=== PATIENT | female | born 1930 | race American Indian/Alaskan Native ===

== ENCOUNTER 2017-01-24 13:55 | Emergency (ER) | payer MEDICARE, BC ==
[2017-01-24 13:59] VITALS: BMI 29.2
[2017-01-24 14:01] VITALS: RESP 18; O2SAT 100
[2017-01-24] MEDS ORDERED: Morphine 4 mg/ml ISec IVP STA (14:51)
--- NOTE | 2017-01-24 14:51 | ED PDOC ---
Arrival/HPI - General Chief Complaint: Trauma Time Seen by Provider: 01/24/17 14:51 Historian: Patient, Family - History of Present Illness Narrative History of Present Illness (Text): 01/24/17 14:51 A 86 year old female was brought into the emergency department by family complaining of left hip pain after fall prior to arrival. Patient reports she felt off balance causing her to fall and land on her left hip. Patient states the pain is worse with movement. Family reports patient frequently loses her balance. Patient denies any loss of consciousness, head trauma, headache, dizziness, neck pain, back pain, nausea, vomiting, abdominal pain, chest pain, shortness of breath or any other complaints. PMD: Dr. Barros Time/Duration: Prior to Arrival Symptom Course: Unchanged Quality: Other Context: Home Past Medical History - Provider Review Nursing Documentation Reviewed: Yes - Infectious Disease Hx of Infectious Diseases: None - Tetanus Immunization Tetanus Immunization: Unknown - Cardiac Hx Cardiac Disorders: Yes Hx Hypertension: Yes Hx Pacemaker: No Other/Comment: Open heart surgery, tripple bypass with stent placement. Cardiac cath - Pulmonary Hx Respiratory Disorders: No - Neurological Hx Neurological Disorder: Yes HX Cerebrovascular Accident: Yes (no deficits) - HEENT Hx Cataracts: Yes Hx Glaucoma: Yes Hx Macular Degeneration: Yes - Renal Hx Renal Disorder: No - Endocrine/Metabolic Hx Endocrine Disorders: No - Hematological/Oncological Hx Blood Disorders: No - Integumentary Hx Dermatological Disorder: No - Musculoskeletal/Rheumatological Hx Musculoskeletal Disorders: Yes Hx Falls: Yes (today) - Gastrointestinal Hx Gastrointestinal Disorders: Yes (reflux) Hx Gastroesophageal Reflux: Yes - Genitourinary/Gynecological Hx Genitourinary Disorders: Yes Other/Comment: Hysterectomy - Psychiatric Hx Psychophysiologic Disorder: No Hx Emotional Abuse: No Hx Physical Abuse: No Hx Substance Use: No - Surgical History Hx Abdominal Aortic Aneurysm Repair: Yes (with stent) Hx Hysterectomy: Yes Other/Comment: tripple bypass with stent placement, cardiac cath. - Anesthesia Hx Anesthesia: Yes Hx Anesthesia Reactions: No Hx Malignant Hyperthermia: No - Suicidal Assessment Feels Threatened In Home Enviroment: No Family/Social History - Physician Review Nursing Documentation Reviewed: Yes Family/Social History: No Known Family HX Smoking Status: Former Smoker Hx Alcohol Use: No Hx Substance Use: No Hx Substance Use Treatment: No Allergies/Home Meds Allergies/Adverse Reactions: Allergies Penicillins Allergy (Verified 12/14/16 14:26) SWELLING pt states family hx of allergy swelling. Does not recall of ever receiving pcn. tetanus and diphtheria toxoids [tetanus & diphtheria toxoids] Allergy (Verified 12/14/16 14:26) SWELLING Home Medications: Home Meds Medication Instructions Recorded Confirmed Aspirin [Aspir 81] 81 mg PO DAILY 03/16/13 12/14/16 Atorvastatin Calcium [Lipitor] 10 mg PO DAILY 03/16/13 12/14/16 Metoprolol Succinate [Toprol XL] 50 mg PO DAILY 03/16/13 12/14/16 Enalapril Maleate 20 mg PO DAILY 10/30/14 12/14/16 Isosorbide Mononitrate [Isosorbide 30 mg PO DAILY 06/01/16 12/14/16 Mononitrate ER] Potassium Chloride [Klor-Con 10] 10 meq PO QOTHERDAY 06/01/16 12/14/16 Allopurinol [Zyloprim] 100 mg PO DAILY 06/08/16 12/14/16 Colchicine 0.6 mg PO DAILY PRN 06/08/16 12/14/16 Propylene Glycol/Peg 400/Pf 1 drop OU BID 06/08/16 12/14/16 [Systane 0.3-0.4% Eye Drops] Spironolactone 25 mg PO DAILY 06/08/16 12/14/16 Vit A/Vit C/Vit E/Zinc/Copper 1 tab PO BID 06/08/16 12/14/16 [Preservision Areds Tablet] Omeprazole 20 mg PO DAILY 12/12/16 12/14/16 Physical Exam - Physical Exam Narrative Physical Exam (Text): - Review of Systems Constitutional: Normal. absent: Fatigue, Weight Change, Fevers Eyes: Normal ENT: Normal Respiratory: Normal absent: SOB, Cough, Sputum Cardiovascular: Normal absent: Chest pain, Palpitations, Syncope Gastrointestinal: Normal absent: Abdominal pain, Diarrhea, Nausea, Vomiting Genitourinary: Normal. absent: Dysuria, Frequency, Hematuria Musculoskeletal: (+) Left hip pain absent: Arthralgias, Back Pain, Neck Pain Skin: Normal Neurological: Normal absent: Focal Weakness Endocrine: Normal Hemo/Lymphatic: Normal Psychiatric: Normal - Physical exam Patient appears age appropriate, speaking full sentences without difficulty Head atraumatic. No nasal bone deformity or tenderness, no facial or jaw pain/ swelling. No neck midline tenderness, thoracic and lumbar spine with no midline tenderness. Pt moving b/l upper and lower extremities without difficulty, 5/5 strength, with full active and passive ROM. L. hip with a large overlying hematoma. No decrease in ROM. Distal neurovasc fully intact. Abd soft/nt/ng, no hematomas, no peritoneal signs. Neg. pelvic rock. - Systems Exam Head: Present: Atraumatic, Normocephalic Pupils: Present: PERRL Extraocular Muscles: Present: EOMI Conjunctiva: Present: Normal Mouth: Present: Moist Mucous Membranes Neck: Present: Normal Range of Motion. No: MIDLINE TENDERNESS, Paraspinal Tenderness Respiratory/Chest: Present: Clear to Auscultation, Good Air Exchange. No: Respiratory Distress, Accessory Muscle Use, Tachypneic Cardiovascular: Present: Regular Rate and Rhythm, Normal S1, S2, Peripheral Pulses Present. No: Murmurs Abdomen: Present: Normal Bowel Sounds, No: Tenderness, Peritoneal Signs, Rebound, Guarding, Distention Back: Present: Normal Inspection. No: Midline Tenderness, Paraspinal Tenderness Upper Extremity: Present: Normal Inspection. No: Cyanosis, Edema Lower Extremity: Present: Large hematoma in left hip No: Edema Neurological: Present: GCS=15, Speech Normal, cranial nerves II through XII fully intact with no cerebellar abnormality, neuro-sensory fully intact. No focal neurological deficits. Skin: Present: Warm, Dry, Normal Color. No: Rashes Lymphatic: Present: OX3, NI, NC Psychiatric: Present: Alert, Oriented x 3, Normal Insight, Normal Concentration Vital Signs Reviewed: Yes Vital Signs Temp Pulse Resp BP Pulse Ox 01/24/17 17:25 69 18 112/67 100 01/24/17 15:38 75 18 114/65 100 01/24/17 14:01 98.0 F 79 18 116/61 100 Temperature: Afebrile Blood Pressure: Normal Pulse: Regular Respiratory Rate: Normal Appearance: Positive for: Well-Appearing, Non-Toxic, Comfortable Pain Distress: None Mental Status: Positive for: Alert and Oriented X 3 Medical Decision Making ED Course and Treatment: 01/24/17 14:51 Impression: A 86 year old female with left hip pain. Patient reports she loss her balance causing her to fall. On exam, large hematoma over the left hip. Plan: -- Head CT -- Left hip xray -- Labs -- Morphine -- Reassess and disposition Progress Notes: PROCEDURE: CT of the Head Library Consultant : Saman Clemons MD IMPRESSION: Chronic microvascular changes. No acute findings. PROCEDURE: CT of the Left Hip. Library Consultant : Den Hansen MD IMPRESSION: No fracture. PROCEDURE: CT of the Pelvis Library Consultant : Den Hansen MD IMPRESSION: No acute fracture 01/24/17 18:42 on reeval, pt states she feels much better ambulates and bears weight with assistance in the ED pt's daughter states she ambulates with a walker at home states she feels comfortable taking mother home and that her brother stays with mom daughter states she can arrange f/u with Dr Barros and ortho specialist Pt states she understands to return to the ER right away for new or worsening symptoms or for inability to f/u with PMD or specialist as instructed. Patient states that she fully agrees with and understands discharge instructions. States that she agrees with the plan and disposition. Verbalized and repeated discharge instructions and plan. I have given the patient opportunity to ask any additional questions. - Lab Interpretations Lab Results: 01/24/17 15:40 01/24/17 15:40 Lab Results 01/24/17 15:50: Blood Type O POSITIVE, Antibody Screen Negative, BBK History Checked No verified bt 01/24/17 15:40: WBC 5.4 D, RBC 3.77, Hgb 11.8 L, Hct 35.6 L, MCV 94.4, MCH 31.3 , MCHC 33.1, RDW 13.5, Plt Count 224, MPV 10.1, Gran % 64.1, Lymph % (Auto) 27.4 , Crowley % (Auto) 5.9, Eos % (Auto) 2.4, Baso % (Auto) 0.2, Gran # 3.49, Lymph # 1.5, Crowley # 0.3, Eos # 0.1, Baso # 0.01, PT 11.2, INR 1.04, APTT 22.6 L, Sodium 139, Potassium 4.2, Chloride 102, Carbon Dioxide 30, Anion Gap 11, BUN 39 H, Creatinine 1.3, Est GFR ( Amer) 47, Est GFR (Non-Af Amer) 39, Random Glucose 94, Calcium 10.4, Total Bilirubin 0.6, AST 21, ALT 24, Alkaline Phosphatase 76, Total Protein 6.9, Albumin 3.7, Globulin 3.3, Albumin/Globulin Ratio 1.1 I have reviewed the lab results: Yes - RAD Interpretation Radiology Orders: 01/24/17 14:51 HEAD W/O CONTRAST [CT] Stat HIP MIN 2V W/ PELVIS LT [RAD] Stat 01/24/17 17:36 PELVIS W/O PO OR IV CONTRAST [CT] Stat 01/24/17 17:38 HIP WITHOUT CONTRAST LEFT [CT] Stat [employer] Cook: Radiologist - Medication Orders Current Medication Orders: Discontinued Medications Morphine Sulfate (Morphine) 4 mg IVP STAT STA Stop: 01/24/17 14:52 Last Admin: 01/24/17 15:30 Dose: 4 MG MAR Pain Assessment Document 01/24/17 15:30 EQ (Rec: 01/24/17 16:48 EQ [id number]) Pain Reassessment Is this a pain reassessment? Yes Sleep Is patient sleeping during reassessment? No Presence of Pain Presence of Pain No Pain Scale Used Pain Scale Used Numeric Location Left, Right or Bilateral Left Pain Location Body Site Hip Description Description Constant Intensity of Pain at present 4 IVP Administration Document 01/24/17 15:30 EQ (Rec: 01/24/17 16:48 EQ [id number]) Charges for Administration # of IVP Administrations 1 - Scribe Statement The provider has reviewed the documentation as recorded by the Darrell Solis Provider Scribe Attestation: All medical record entries made by the Scribe were at my direction and personally dictated by me. I have reviewed the chart and agree that the record accurately reflects my personal performance of the history, physical exam, medical decision making, and the department course for this patient. I have also personally directed, reviewed, and agree with the discharge instructions and disposition. Disposition/Present on Arrival - Present on Arrival Any Indicators Present on Arrival: No History of DVT/PE: No History of Uncontrolled Diabetes: No Urinary Catheter: No History of Decub. Ulcer: No History Surgical Site Infection Following: None - Disposition Have Diagnosis and Disposition been Completed?: Yes Diagnosis: Fall at home Disposition: HOME/ ROUTINE Disposition Time: 18:45 Patient Plan: Discharge Patient Problems: Current Active Problems Problem Status Diagnosed Flank pain Acute Groin pain Acute Hematuria Acute UTI (urinary tract infection) Acute Condition: GOOD Discharge Instructions (ExitCare): Fall Prevention for Older Adults (ED), Contusion in Adults (ED), Hematoma (ED) Additional Instructions: PLEASE RETURN TO THE EMERGENCY DEPARTMENT FOR NEW OR WORSENING SYMPTOMS. RETURN RIGHT AWAY IF YOU CANNOT FOLLOW UP WITH YOUR PRIMARY CARE DOCTOR, CLINIC, OR SPECIALIST IN 1-2 DAYS. Prescriptions: Acetaminophen with Codeine [Tylenol with Codeine #3 Tablet] 1 each PO Q6 PRN # 12 tablet PRN Reason: Pain, Moderate (4-7) Referrals: Chantale Barros MD [Primary Care Provider] - Follow up with primary Isauro Kim III, MD [Medical Doctor] - Follow up with primary Saman Johnson DO [Staff Provider] - Follow up with primary Trinidad Richard MD [Staff Provider] - Follow up with primary
[2017-01-24 15:42] LABS: ADD MANUAL DIFF? NO
[2017-01-24 15:50] LABS: BASO # 0.01 K/mm3 (0.0-2.0); BASO % 0.2 % (0.0-3.0); EOS # 0.1 (0.0-0.7); EOS % 2.4 % (1.5-5.0); GRAN # 3.49 (1.4-6.5); GRAN % 64.1 % (50.0-68.0); HEMATOCRIT 35.6 % (36.0-48.0); LYMPH # 1.5 (1.2-3.4); LYMPH % 27.4 % (22.0-35.0); MEAN CELL VOLUME 94.4 fL (80.0-105.0); MEAN CORPUSCULAR HEMOGLOBIN 31.3 pg (25.0-35.0); MEAN CORPUSCULAR HGB CONC 33.1 g/dl (31.0-37.0); MEAN PLATELET VOLUME 10.1 fl (7.0-11.0); MONO # 0.3 (0.1-0.6); MONO % 5.9 % (1.0-6.0); PLATELET COUNT 224 10^3/uL (120.0-450.0); RED CELL DISTRIBUTION WIDTH 13.5 % (11.5-14.5); WHITE BLOOD COUNT 5.4 10^3/ul (4.5-11.0)
[2017-01-24 15:59] LABS: ALB/GLOB RATIO 1.1 (1.1-1.8); BILIRUBIN,TOTAL 0.6 mg/dL (0.2-1.3); CALCIUM 10.4 mg/dL (8.4-10.5); POTASSIUM 4.2 mmol/L (3.6-5.0); TOTAL PROTEIN 6.9 g/dL (5.8-8.3)
[2017-01-24 16:06] LABS: INR 1.04 (0.93-1.08); PARTIAL THROMBOPLASTIN TIME 22.6 Seconds (23.7-30.8)
--- NOTE | 2017-01-24 16:09 | CT ---
PROCEDURE: CT HEAD WITHOUT CONTRAST. HISTORY: fall COMPARISON: 10/30/2014 TECHNIQUE: Axial computed tomography images were obtained through the head/brain without intravenous contrast. Radiation dose: Total exam DLP = 712 mGy-cm. This CT exam was performed using one or more of the following dose reduction techniques: Automated exposure control, adjustment of the mA and/or kV according to patient size, and/or use of iterative reconstruction technique. FINDINGS: HEMORRHAGE: No intracranial hemorrhage. BRAIN: No mass effect or edema. Chronic microvascular changes are seen in the periventricular white matter. VENTRICLES: Unremarkable. No hydrocephalus. CALVARIUM: Unremarkable. PARANASAL SINUSES: Unremarkable as visualized. No significant inflammatory changes. MASTOID AIR CELLS: Unremarkable as visualized. No inflammatory changes. OTHER FINDINGS: The basilar artery is severely tortuous and calcified IMPRESSION: Chronic microvascular changes. No acute findings
--- NOTE | 2017-01-24 18:15 | CT ---
PROCEDURE: CT of the Left Hip. HISTORY: fall COMPARISON: None available. TECHNIQUE: Contiguous axial images of the left hip were obtained. Coronal and sagittal reformats were generated. Four hundred seventy-[address] MAS radiation dose This CT exam was performed using one or more of the following dose reduction techniques: Automated exposure control, adjustment of the mA and/or kV according to patient size, and/or use of iterative reconstruction technique. FINDINGS: BONES: Unremarkable. No fracture or focal lesion. Femoral head maintains normal contour. LEFT HIP JOINT: Unremarkable. No dislocation. No degenerative changes. SOFT TISSUES: Left lateral upper thigh hematoma.. IMPRESSION: No fracture.
--- NOTE | 2017-01-24 18:26 | CT ---
PROCEDURE: CT Pelvis without contrast HISTORY: fall COMPARISON: None. TECHNIQUE: Contiguous axial images of the pelvis . No intravenous or oral contrast given. Coronal and sagittal reformats generated. Radiation dose: Total exam DLP = mGy-cm. This CT exam was performed using one or more of the following dose reduction techniques: Automated exposure control, adjustment of the mA and/or kV according to patient size, and/or use of iterative reconstruction technique. FINDINGS: BLADDER: Unremarkable. No mass. REPRODUCTIVE ORGANS: Unremarkable. VISUALIZED BOWEL: Unremarkable. PERITONEUM: Unremarkable, as visualized. No free fluid. No free air. LYMPH NODES: Unremarkable. No enlarged lymph nodes. BONES: No fracture or focal lesion. VASCULATURE: Unremarkable. 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 Left lateral upper thigh soft tissue hematoma.. IMPRESSION: No acute fracture.
[2017-01-24 18:52] VITALS: BP 116/69; PULSE 67
[2017-01-24 19:00] VITALS: TEMP 98
--- NOTE | 2017-01-25 09:43 | RAD ---
PROCEDURE: Pelvis left hip HISTORY: fall, L hip pain COMPARISON: CT left hip Summary of findings on the comparison examination: Left upper thigh hematoma. No fracture TECHNIQUE: Standard protocol for this study/examination. FINDINGS: There are no osseous abnormalities to suggest fracture. The pelvic ring is intact. Preserved femoral-acetabular relationship. Negative study for protrusio, subluxation or dislocation. Degenerative changes: Mild, symmetrical. IMPRESSION: No acute findings related to/accounting for the clinical presentation.
== END 2017-01-24 19:10 | disposition home or self-care (01) ==
LOC: ED 13:55
DX: Z04.3 Encounter for examination and observation following other accident (principal); W01.0XXA Fall on same level from slipping, tripping and stumbling without subsequent striking against object, initial encounter; Y92.009 Unspecified place in unspecified non-institutional (private) residence as the place of occurrence of the external cause; I10 Essential (primary) hypertension; Z95.1 Presence of aortocoronary bypass graft; Z87.891 Personal history of nicotine dependence
CPT/HCPCS: 70450; 72192; 73502; 73700; 80053; 85025; 85610; 85730; 86850; 86900; 96374; 99285; J2270